=== PATIENT | female | born 1995 | race African-American/Black ===

== ENCOUNTER 2017-02-11 10:47 | Emergency (ER) | payer MEDICAID, OTHER ==
[~2017-02-11] VITALS: Ht 170.2 cm; Wt 98.2 kg
[2017-02-11 11:49] VITALS: BP 127/77
== END 2017-02-11 11:49 | disposition home or self-care (01) ==
LOC: EMS 10:50
DX: J02.9 Acute pharyngitis, unspecified (principal); F32.9 Major depressive disorder, single episode, unspecified; F41.9 Anxiety disorder, unspecified; F17.210 Nicotine dependence, cigarettes, uncomplicated
CPT/HCPCS: 99281

== ENCOUNTER 2021-03-12 02:01 | Emergency (ER) | payer MEDICAID, OTHER ==
[~2021-03-12] VITALS: Ht 170.2 cm; Wt 109.1 kg
[2021-03-12] MEDS ORDERED: KETOROLAC TROMETHAMINE 30 MG/ML VIAL IM ONE (03:00)
[2021-03-12] MEDS ORDERED: CYCLOBENZAPRINE HCL 10 MG TABLET PO ONE (03:00)
[2021-03-12 04:41] VITALS: BP 118/86
== END 2021-03-12 04:55 | disposition home or self-care (01) ==
LOC: EMS 02:01
DX: M54.5 Low back pain (principal); F15.10 Other stimulant abuse, uncomplicated; F41.9 Anxiety disorder, unspecified; F32.9 Major depressive disorder, single episode, unspecified; F17.210 Nicotine dependence, cigarettes, uncomplicated; F12.90 Cannabis use, unspecified, uncomplicated
CPT/HCPCS: 96372; 99283; J1885